=== PATIENT | male | born 1970 | race Caucasian/White ===

== ENCOUNTER 2021-03-24 15:12 | Emergency (ER) | payer SELFPAY ==
[2021-03-24] VITALS (37 sets, daily range): BP systolic 134–159; BP diastolic 91–107; PULSE 89–109; RESP 13–29; TEMP 37.3; O2SAT 91–96
--- NOTE | 2021-03-24 15:00 | RT.EKG_ITS ---
APPROVED REPORT Exam: Resting ECG Reason for Exam: unresponsive episode Patient Location: E HR:105 bpm ECG Measurements Heart Rate 105 AXIS CO 148 P 50 QRSd 96 QRS 27 QT 384 T -13 QTc 506 Conclusion Sinus tachycardia...rate> 99 Probable left atrial enlargement...P >50mS, <-0.10mV V1 Inferior infarct, age indeterminate...Q>35mS, T neg, II III aVF Prolonged QT interval...QTc >500mS sinus rhythm 105, normal axis, QTC 506, no STEMI, nondiagnostic EKG
--- NOTE | 2021-03-24 15:15 | DI.CT_ITS ---
Exam(s) CT HEAD WO EXAM: CT HEAD WO CLINICAL HISTORY: trauma. TECHNIQUE: Imaging Protocol: Axial computed tomography images with coronal and sagittal reformatted images were created and reviewed COMPARISON: No exams were available for comparison FINDINGS: There are no skull fractures nor fluid in the visualized paranasal sinuses. There is no evidence of intracranial hemorrhage, mass effect, or shift of midline structures. There are no extra-axial fluid collections. The ventricles are not enlarged or shifted and there is no blo od within the ventricular system nor within the basal cisterns. IMPRESSION: No acute intracranial findings on this noninfused CT scan of the brain. RADIATION DOSE DELIVERED: 788.63mGy.cm Total DLP DATA REPOSITORY: All CT scans at this facility are submitted to the National Radiology Data Registry (NRDR) Dose Index Registry (DIR) with the [employer] ([employer]). RADIATION OPTIMIZATION: All CT scans at this facility use at least one of these dose optimization te chniques: automated exposure control; mA and/or kV adjustment per patient size (includes targeted exa ms where dose is matched to clinical indication); or iterative reconstruction.
[2021-03-24 15:59] LABS: Abs Immature Grans 0.63 10^3/uL (0.0-0.06); Absolute Eosinophil Count 0.12 10^3/uL (0.0-0.7); Basophils % 0.2; Eosinophils % 0.5; HGB 15.1 g/dL (13.5-17.5); Immature Grans % 2.6; Lymphocytes % 5.6; MCH 30.2 pg (27.0-33.0); MCHC 33.6 % (32.0-36.0); MPV 9.9 fL (8.0-11.0); Monocytes % 8.2; Neutrophils % 82.9; Nucleated RBC 0 %; Platelet Count 356 10^3/uL (130-400); RDW 12.7 % (11.8-14.1); RDW-SD 42.2 fL; WBC 24.45 10^3/uL (4.4-10.8)
[2021-03-24 16:00] LABS: Absolute Basophil Count 0.05 10^3/uL (0.0-0.2); Absolute Lymphocyte Count 1.37 10^3/uL (1.2-3.4); Absolute Neutrophil Count 20.27 10^3/uL (1.2-6.7)
--- NOTE | 2021-03-24 16:00 | DI.RAD_ITS ---
Exam(s) XR CHEST 2V PA LATERAL EXAM: XR CHEST 2V PA LATERAL CLINICAL HISTORY: unresponsive period, elevated Wbc. TECHNIQUE: 2D digital imaging was performed. COMPARISON: No exams were available for comparison FINDINGS: Heart size is upper normal. The mediastinum is not widened. Lungs are clear. No infiltrates nor pleural effusions. IMPRESSION: No acute pulmonary findings. DATA REPOSITORY: RADIATION DOSE DELIVERED:
[2021-03-24 16:06] LABS: INR 1.1 (0.9-1.1); Prothrombin Time 10.6 sec (9.3-11.0)
[2021-03-24 16:10] LABS: ALT 74 U/L (16-63); AST 262 U/L (15-37); Albumin 3.4 g/dL (3.4-5.0); Alkaline Phosphatase 70 U/L (46-116); Anion Gap 8.6 mmol/L (3-11); BUN 31 mg/dL (7-18); Bilirubin, Total 0.3 mg/dL (0.2-1.0); CO2 28.4 mmol/L (21.0-32.0); CREATININE 2.1 mg/dL (0.70-1.30); Calcium 8.6 mg/dL (8.5-10.1); Chloride 100 mmol/L (98-107); Estimated GFR 33.46 (mL/min/1.73m2); Glucose 136 mg/dL (74-106); Sodium 137 mmol/L (136-145); Total Protein 7.3 g/dL (6.4-8.2)
[2021-03-24 16:37] LABS: Diff Comment Agrees w/ Instrument; RBC Morphology Normal
--- NOTE | 2021-03-24 16:59 | W.ED.GENAD ---
Discharge Plan Disposition Patient Disposition: HOME Condition: Improving Discharge Details Clinical Impression: Acute UTI, Collapse Primary Care Provider: None,None ED Provider: Emiliano Parsons Home Meds and New Rx's Prescriptions: New cephalexin 500 mg capsule 500 mg PO TID 7 Days Qty: 21 RF: 0 Discharge Instructions Instructions: Urinary Tract Infection in Men (ED) Additional Instructions: Our care management team will work to get to a local primary care physician for follow-up. As we discussed you will require repeat laboratories including your liver and kidney function. Take antibiotics until finished. Return to the ER for any concerns. Discharge Data Discharge Date/Time-TO BE ENTERED AT DEPARTURE: 03/24/21 20:43 Medical Decision Making <Nemo Talbot MD - Last Filed: 03/30/21 22:44> Scar Younger is a 50 y/o man with h/o HTN who presented to the ED with unresponsive episode at home resolved with narcan administered by EMS; Pt denies opiate use, EMS reports they have been called to Pt's home for PT opiate OD several times in the past. On exam Pt is well and non-toxic appearing. Benign cardipulmonary exam. Concern for likely opiate overdose given response to narcan, possible metabolic/lyte derangement, possible head trauma as Pt was found on kitchen floor. Exam/hx at this time not c/w pulmonary embolism, acute coronary syndrome, sepsis. Plan for IV placement, EKG, telemetry, IVF hydration, screening labs. Labs reviewed, WBC 24.45, Hgb 15.1, lactate 1.3, Cr 2.1. Pt signed out to Dr. Parsons at time of shift change with CT head, CXR, UA, reassessment pending. Plan for repeat BMP given elevated Cr without known baseline after fluids. Lauraon dictation error in signout section of this note, signout note erroneously reads Evaluate completely unrealistic Medical Records Medical records reviewed: Yes I reviewed the patient's medical records. ECG Data Attestation: I personally reviewed and interpreted this ECG (s) as follows: Interpretation: EKG shows sinus rhythm 105, normal axis, QTC 506, no STEMI, nondiagnostic EKG <Emiliano Parsons MD - Last Filed: 03/24/21 19:50> Patient signout on the patient from Dr. Talbot. He was brought in by EMS after requiring airway assistance and was bagged for 3 to 4 minutes, responded with 2 mg of IV Narcan. Please see Dr. Talbot's note for details initial presentation, exam and plan of care. Patient's imaging reveals unremarkable CT scan of the head. Age indeterminant kyphosis of the T11 vertebral body. (no tenderness present on my examination of patients back). Patient's laboratories revealed elevated white blood cell count and positive UTI. He had acute renal insufficiency with BUN of 31 and creatinine 2.1. Noted to have elevated LFTs and opiate drug abuse. Patient given 2 L fluid and repeat chemistries obtained. Chemistries are somewhat improved. We will ask for adult caregiver to arrange local follow-up including potential [facility] for the patient. We will treat for UTI. He understands the need for repeat laboratories. HPI <Nemo Talbot MD - Last Filed: 03/30/21 22:44> General Mode of arrival: EMS. Date/Time Provider Initiated Documentation: 03/24/21 15:29. Limitations to Documentation: no limitations. Information obtained by: patient, EMS, RN notes reviewed and old records reviewed. HPI Narrative: Scar Younger is a 50 y/o man with h/o HTN presenting to the emergency department with unresponsive episode. Pt reports that he remembers sitting on hi scough this morning, and then remembers waking up on his kitchen floor surrounded by EMS. Per EMS, Pt was found in his home unresponsive, cyanotic. OPA and NPA airways were placed, Pt bagged for 3-4 minutes. Pt was given 2mg IV narcan and had immediate recovery, was A&Ox3 in the field after narcan. Pt denies any h/o opiate use including today. EMS reports to me that they are frequently called to this Pt's place of residence for opiate overdoses. They report that Pt has received narcan from EMS multiple times in the past, usually refuses transport to ED. Pt states that he feels fine and has no complaint. States that he was previously in his usual state of health. Denies any pain, fever, SOB, cough, vomiting, diarrhea, numbness, weakness, rash, wound. Pt states that he is unsure whether he fell during episode. Related Data Home Medications Medication Instructions Recorded Confirmed cephalexin 500 mg PO TID 7 Days #21 cap 03/24/21 Previous Rx's Medication Instructions Recorded cephalexin 500 mg PO TID 7 Days #21 cap 03/24/21 Allergies Allergy/AdvReac Type Severity Reaction Status Date / Time bupropion [From Wellbutrin] Allergy Other (See Unverified 03/24/21 15:21 Comment) General Stated Complaint: OD/Poison VIVIENNE: 2 Review of Systems <Nemo Talbot MD - Last Filed: 03/30/21 22:44> Narrative: Constitutional: denies fevers Eyes: denies eye pain ENT: denies ear pain, dental pain, sore throat Cardiovascular: denies chest pain Respiratory: denies SOB, cough GI: denies abdominal pain, vomiting, diarrhea : denies flank pain MSK: denies back pain, neck pain, arthralgias, myalgias Skin: denies rash Neuro: denies headaches, numbness, weakness PFSH <Nemo Talbot MD - Last Filed: 03/30/21 22:44> Social History Smoking/Tobacco Use Status: Current every day Tobacco Type: cigarettes Smoking risk assessment performed?: Yes Alcohol Intake: current Alcohol Intake frequency: a few times a week Alcohol type: beer Substance use type: does not use Details: denies any narcotic use Do you feel safe at home: Yes Do you feel safe in your relationship?: Yes Exam <Nemo Talbot MD - Last Filed: 03/30/21 22:44> Narrative Exam Narrative: Constitutional: well and [id number], pleasant, conversing normally HENT: head atraumatic/normocephalic/normal inspection, mucous membranes moist Eyes: conjunctiva normal, sclera normal, pupils 3mm b/l Neck: no stridor, normal ROM, trachea midline Chest: normal inspection Resp: normal work of breathing, LCTAB Cardio: normal rate, normal rhythm, no murmur appreciated GI: abdomen soft, non-tender, non-distended Back: normal inspection, no rash Skin: warm, dry, normal color, no rash Neuro: alert, not altered, grossly non-focal, normal tone Ext: no edema Psych: normal mood, normal affect, normal behavior Course <Nemo Talbot MD - Last Filed: 03/30/21 22:44> Vital Signs Vital signs: Vital Signs Temperature 37.3 C 03/24/21 15:07 Pulse 106 H 03/24/21 15:07 Respiratory Rate 20 03/24/21 15:07 Blood Pressure 159/99 H 03/24/21 15:07 Pulse Oximetry 96 03/24/21 15:07 Temperature 37.3 C 03/24/21 15:07 Temperature Source Skin 03/24/21 15:07 Pulse 97 H 03/24/21 15:47 Pulse 98 H 03/24/21 15:50 Respiratory Rate 15 03/24/21 15:50 Respiratory Effort 03/24/21 15:22 Respiratory Depth Normal 03/24/21 15:22 Respiratory Pattern Normal 03/24/21 15:22 Blood Pressure 144/92 H 03/24/21 15:47 Blood Pressure Mean 104 03/24/21 15:47 Pulse Oximetry 92 03/24/21 15:50 Oxygen Delivery Method Room Air 03/24/21 15:07 Oxygen Flow Rate 0 03/24/21 15:07 Pain Level 0 03/24/21 15:07 Lab/Test Results Lab/Test Results: 03/24/21 16:07 Blood Blood Culture - Pending 03/24/21 16:07 Blood Blood Culture - Pending Laboratory Tests Range/Units 03/24/21 03/24/21 03/24/21 15:43 15:43 15:43 WBC (4.4-10.8) 10^3/uL 24.45 H RBC (4.36-5.78) 10^6/uL 5.00 Hgb (13.5-17.5) g/dL 15.1 Hct (40.0-50.0) % 45.0 MCV (80-95) fL 90.0 MCH (27.0-33.0) pg 30.2 MCHC (32.0-36.0) % 33.6 RDW (11.8-14.1) % 12.7 Plt Count (130-400) 10^3/uL 356 MPV (8.0-11.0) fL 9.9 Immature Gran % 2.6 Neutrophils % 82.9 Lymphocytes % 5.6 Monocytes % 8.2 Eosinophils % 0.5 Basophils % 0.2 Nucleated RBC % % 0 Absolute Neutrophils (1.2-6.7) 10^3/uL 20.27 H Absolute Lymphocytes (1.2-3.4) 10^3/uL 1.37 Absolute Monocytes (0.1-0.8) 10^3/uL 2.00 H Absolute Eosinophils (0.0-0.7) 10^3/uL 0.12 Absolute Basophils (0.0-0.2) 10^3/uL 0.05 RBC Morphology Normal PT (9.3-11.0) sec 10.6 INR (0.9-1.1) 1.1 Sodium (136-145) mmol/L 137 Potassium (3.5-5.1) mmol/L 4.0 Chloride (98-107) mmol/L 100 Carbon Dioxide (21.0-32.0) mmol/L 28.4 Anion Gap (3-11) mmol/L 8.6 BUN (7-18) mg/dL 31 H Creatinine (0.70-1.30) mg/dL 2.1 H Estimated GFR/1.73 m2 (mL/min/1.73m2) 33.46 Glucose (74-106) mg/dL 136 H Calcium (8.5-10.1) mg/dL 8.6 Total Bilirubin (0.2-1.0) mg/dL 0.3 AST (15-37) U/L 262 H ALT (16-63) U/L 74 H Alkaline Phosphatase (46-116) U/L 70 Total Protein (6.4-8.2) g/dL 7.3 Albumin (3.4-5.0) g/dL 3.4 Sign Out <Nemo Talbot MD - Last Filed: 03/30/21 22:44> Sign Out Data: Sign Out Comment: Patient signed out to Dr. Parsons with CT head, chest x-ray, UA, reassessment pending. Patient with creatinine 2.1, unknown baseline. Plan for IV fluids, repeat BMP. Evaluate completely unrealistic Last updated by Nemo Talbot MD at 03/24/21 17:15 PAWSS <Nemo Talbot MD - Last Filed: 03/30/21 22:44> Have you Been Recently Intoxicated or Drunk Within the Last 30 days?: Yes Have you Ever Experienced Previous Episodes of Alcohol Withdrawal?: No Have you ever Experienced Withdrawal Seizures?: No Have you ever Experienced Delirium Tremens(DT)s?: No Have you ever undergone Alcohol Rehabilitation Treatment (i.e, inpt ot outpatient treatment programs)?: No Have you ever Experienced Blackouts?: Yes Have you ever Combined Alcohol with other Downers within the last 90 days?: No Have you ever Combined Alcohol with any other Substance of Abuse during the last 90 days?: No Positive Blood Alcohol level on Presentation? [PCS.BAL]: No Evidence of Increased Autonomic Activity (i.e. HR>120, tremor, sweating, agitation, nausea)?: No Result: 2
--- NOTE | 2021-03-24 17:01 | DI.VRAD_ITS ---
PROCEDURE INFORMATION: Exam: CT Head Without Contrast Exam date and time: 03/24/2021 3:30 PM Age: 50 years old Clinical indication: Other: Trauma TECHNIQUE: Imaging protocol: Computed tomography of the head without contrast. Radiation optimization: All CT scans at this facility use at least one of these dose optimization techniques: automated exposure control; mA and/or kV adjustment per patient size (includes targeted exams where dose is matched to clinical indication); or iterative reconstruction. COMPARISON: No relevant prior studies available. FINDINGS: Brain: There is no evidence of acute hemorrhage within the brain parenchyma or the subarachnoid space. No abnormal attenuation is noted within the brain parenchyma. Cerebral ventricles: There is no significant ventricular effacement or midline shift. The ventricular system is normal in size and distribution. Paranasal sinuses: The sinuses are normal. Mastoid air cells: The mastoid sinuses are normal. Orbital cavity: The orbits are normal. Bones/joints: The skull is normal. No skull fracture. Soft tissues: The extracranial soft tissues are normal. IMPRESSION: No acute abnormality. Dictated and Authenticated by: Roderick Victor MD. Ordering:CATRINA Chester MD
[2021-03-24] MEDS: Normal Saline 1,000 ML 1000 ML IV (17:05)
--- NOTE | 2021-03-24 17:05 | DI.VRAD_ITS ---
PROCEDURE INFORMATION: Exam: XR Chest Exam date and time: 03/24/2021 4:07 PM Age: 50 years old Clinical indication: Other: Unresponsive period, elevated wbc; Additional info: Trauma TECHNIQUE: Imaging protocol: XR of the chest. Views: 2 views. COMPARISON: No relevant prior studies available. FINDINGS: Lungs: The lungs are clear without opacity or suspicious parenchymal finding. Pleural spaces: Unremarkable. No pleural effusion. No pneumothorax. Heart/Mediastinum: Unremarkable. No cardiomegaly. Bones/joints: Mild thoracolumbar junction kyphosis at the T11 vertebral body with roughly 30% loss of anterior vertebral body height. Correlate with site of pain to exclude acute thoracic spine vertebral body fracture at this level. Consider follow-up CT chest and/or thoracic spine study. IMPRESSION: Mild thoracolumbar junction kyphosis at the T11 vertebral body with roughly 30% loss of anterior vertebral body height. Correlate with site of pain to exclude acute thoracic spine vertebral body fracture at this level. Consider follow-up CT chest and/or thoracic spine study. Dictated and Authenticated by: Roderick Victor MD. Ordering:CATRINA Chester MD
[2021-03-24 17:31] LABS: Bilirubin Negative (Negative); Blood Large (Negative); Clarity Clear (Clear); Glucose Negative (Negative); Ketones Negative (Negative); Leukocyte Esterase Negative (Negative); Nitrite Negative (Negative); Urobilinogen 0.2 EU/dL (Up TO 0.2); pH 5.5 (5-8)
[2021-03-24 17:32] LABS: Lactate 1.3 mmol/L (0.6-1.4)
[2021-03-24 17:38] LABS: Bacteria Few HPF (Negative); Epithelial Cells Negative HPF (Negative); Other Cells Negative (Negative); RBC Negative HPF (0-2)
[2021-03-24 17:39] LABS: C & S Indicated? Yes; Crystals Few Calcium Oxalate HPF (Negative); Mucus Negative (Negative)
[2021-03-24 18:44] LABS: Anion Gap 5.9 mmol/L (3-11); BUN 30 mg/dL (7-18); CO2 27.1 mmol/L (21.0-32.0); CREATININE 1.9 mg/dL (0.70-1.30); Calcium 8.4 mg/dL (8.5-10.1); Chloride 103 mmol/L (98-107); Estimated GFR 37.56 (mL/min/1.73m2); Glucose 101 mg/dL (74-106); Potassium 4.4 mmol/L (3.5-5.1); Sodium 136 mmol/L (136-145)
[2021-03-24 19:52] LABS: *AMPHETAMINES SCREEN URINE Negative (Negative); *BARBITURATES SCREEN URINE Negative (Negative); *BENZODIAZEPINES SCREEN URINE Negative (Negative); Cannabinoids THC Negative (Negative); Cocaine Screen,Urine Negative (Negative); METHADONE URINE SCREEN Negative (Negative); OPIATES URINE SCREEN Negative (Negative)
[2021-03-24 19:56] LABS: Tricyclic Antidepressants Negative (Negative)
[2021-03-24] MEDS: Cephalexin 500 MG CAP, 4 CAPS/BTL PO (20:31)
--- NOTE | 2021-03-25 01:44 | NUR.NOTE ---
Nursing Note: i faxed the care management referral for a pcp williams bhatia
== END 2021-03-24 20:43 | disposition home or self-care (01) ==
PROVIDERS: Student in an Organized Health Care Education/Training Program; Emergency Provider Emergency Medicine
DX: N39.0 Urinary tract infection, site not specified (principal); R55 Syncope and collapse; N28.9 Disorder of kidney and ureter, unspecified
CPT/HCPCS: 36415; 80048; 80053; 80307; 87040; 93005; 96360; 99285; 70450; 71046; 81003; 81015; 83605; 85025; 85610; 87086; 93010; 99281